=== PATIENT | female | born 1985 ===

== ENCOUNTER 2019-12-22 14:35 | Emergency (ER) | payer OTHER, SELFPAY ==
[2019-12-22 14:40] VITALS: BP 155/87; PULSE 107; RESP 20; TEMP 36.4; O2SAT 97
--- NOTE | 2019-12-22 14:53 | ED.GENADULT ---
HPI - General Adult General Chief complaint: Skin/Abscess/Foreign Body Stated complaint: Infection on left big toe Time Seen by Provider: 12/22/19 14:59 Source: patient and RN notes reviewed Mode of arrival: ambulatory Limitations: no limitations History of Present Illness HPI narrative: This is a 34 years old female presents to the office for an evaluation of possible infected toe. States, about three weeks ago, she saw a lock operator to remove her ingrowing toenail and then she went back for a 2 weeks follow-up and everything was fine until about 3 days ago. She noticed area thick drainage coming out from her affected toe every time she removed Band-Aid. She was told by lock operator to do Band-Aid, Epsom salts, and Neosporin topical. State, her lock operator office has been closed due to Covid19. Related Data Home Medications Medication Instructions Recorded Confirmed albuterol sulfate [ProAir HFA] INHALATION 12/22/19 amlodipine 12/22/19 aspirin [Aspir-Low] 12/22/19 cyclobenzaprine mg 12/22/19 dicyclomine mg 12/22/19 duloxetine mg PO 12/22/19 glipizide mg 12/22/19 lacosamide [Vimpat] 12/22/19 magnesium oxide 12/22/19 mometasone-formoterol [Dulera] INHALATION 12/22/19 omeprazole 12/22/19 paroxetine HCl mg PO 12/22/19 ropinirole mg 12/22/19 sumatriptan succinate mg PO 12/22/19 Allergies Allergy/AdvReac Type Severity Reaction Status Date / Time diazepam [From Valium] AdvReac Nausea and Verified 12/22/19 15:05 Vomiting tramadol AdvReac Nausea and Verified 12/22/19 15:05 Vomiting Review of Systems Review of Systems: Narrative: CONSTITUTIONAL: Denies fever, chills ENT: Denies congestion CARDIOVASCULAR: Denies chest pain, edema. RESPIRATORY: Denies cough GASTROINTESTINAL: Denies abdominal pain, vomiting, diarrhea. Reports feeling nausea today SKIN: Reports left great toe pain with swelling and redness and green drainage MUSCULOSKELETAL: Denies toes injury/trauma NEUROLOGIC: Denies numbness PMFSH Past Medical History Medical History (Updated 12/22/19 @ 15:18 by PETRONA Moran) Anxiety and depression Diabetes mellitus, type II Migraine Surgical History Surgical History (Updated 12/22/19 @ 15:18 by PETRONA Moran) H/O section Hx of cholecystectomy Hx of tonsillectomy Social History Social History (Updated 12/22/19 @ 15:19 by PETRONA Moran) Smoking status: Current every day smoker Comments At time of signature, I agree with nursing past medical, surgical, social and family history. There is no relevant family history pertinent to the presenting complaint. Exam Narrative: Exam Narrative: GENERAL: This is a well-nourished, well-developed patient, in no apparent distress. CARDIOVASCULAR: Regular rate and rhythm without murmurs, gallops, or rubs. RESPIRATORY: Clear to auscultation. Breath sounds equal bilaterally. No wheezes, rales, or rhonchi. GASTROINTESTINAL: obese, Abdomen soft, non-tender, nondistended. Bowel sounds are active. No guarding. NEURO: awake, alert, and oriented to person, place and time. There were no obvious focal neurologic abnormalities. Steady gait EXTREMITIES: left great toe noted edematous, erythema, tender to palpation lateral nailfold; fibular aspect of great toe. Cap refills brisk. Pedal pulse intact. No lymphandenititis. [place] Coma Scale Eye Opening: Spontaneous 4 [place] Coma Scale Motor: Obeys Commands 6 [place] Coma Scale Verbal: Oriented 5 Course Vital Signs Vital signs: Vital Signs Temperature 97.6 F 12/22/19 14:40 Pulse Rate 107 H 12/22/19 14:40 Respiratory Rate 12/22/19 14:40 Blood Pressure 155/87 H 12/22/19 14:40 Pulse Oximetry 97 12/22/19 14:40 Temperature 97.6 F 12/22/19 14:40 Pulse Rate 107 H 12/22/19 14:40 Respiratory Rate 12/22/19 14:40 Blood Pressure 155/87 H 12/22/19 14:40 Pulse Oximetry 97 12/22/19 14:40 Medical Decision Making MDM Narrative
== END 2019-12-22 15:12 | disposition home or self-care (01) ==
PROVIDERS: Emergency Provider Nurse Practitioner
DX: L03.032 Cellulitis of left toe (principal); F41.9 Anxiety disorder, unspecified; F32.9 Major depressive disorder, single episode, unspecified; E11.9 Type 2 diabetes mellitus without complications; F17.200 Nicotine dependence, unspecified, uncomplicated
CPT/HCPCS: 99213; G0463

== ENCOUNTER 2021-10-02 14:42 | Emergency (ER) | payer OTHER, SELFPAY ==
[2021-10-02 14:50] VITALS: BP 172/90; PULSE 101; RESP 20; TEMP 36.9; O2SAT 98
--- NOTE | 2021-10-02 15:04 | ED.URI ---
HPI - URI/Sore Throat General Chief Complaint: Upper Respiratory Infection Stated Complaint: cough,chest hurts,diarrhea,fever Time Seen by Provider: 10/02/21 15:04 Source: patient Mode of arrival: ambulatory Limitations: no limitations History of Present Illness HPI Narrative: Patient presents with a 2-week history of sinus congestion and drainage. Patient states she is recently started having right ear pain. Patient denies any drainage from her ear is using Flonase for her nasal congestion and reports cough but denies any shortness of breath no chest pain MD elicited complaint: fever, cough and nasal congestion Related Data Home Medications Medication Instructions Recorded Confirmed albuterol sulfate [ProAir HFA] 2 puff INHALATION Q4-6H PRN 12/22/19 10/02/21 amlodipine [Norvasc] 5 mg PO DAILY 12/22/19 10/02/21 dicyclomine 10 mg PO DAILY 12/22/19 10/02/21 duloxetine [Cymbalta] 60 mg PO DAILY 12/22/19 10/02/21 glipizide [Glucotrol] 10 mg PO DAILY 12/22/19 10/02/21 lacosamide [Vimpat] 150 mg PO DAILY 12/22/19 magnesium oxide 12/22/19 mometasone-formoterol [Dulera] INHALATION 12/22/19 omeprazole 40 mg PO DAILY 12/22/19 10/02/21 paroxetine HCl [Paxil] 30 mg PO DAILY 12/22/19 10/02/21 ropinirole 1 mg PO DAILY 12/22/19 10/02/21 sumatriptan succinate 50 mg PO DAILY PRN 12/22/19 10/02/21 aspirin [Aspirin Low Dose] 81 mg PO DAILY 10/02/21 10/02/21 Allergies Allergy/AdvReac Type Severity Reaction Status Date / Time diazepam [From Valium] AdvReac Mild Nausea and Verified 10/02/21 15:07 Vomiting tramadol AdvReac Mild Nausea and Verified 10/02/21 15:07 Vomiting Review of Systems Review of Systems: CONSTITUTIONAL: Denies chills, or sweats. Reports fever and generalized body aches EYES: Denies visual changes, redness, or discharge. ENT: Denies otalgia. Reports nasal congestion runny nose and sore throat CARDIOVASCULAR: Denies chest pain, palpitations, or edema. RESPIRATORY: Denies dyspnea. Reports occasional cough GASTROINTESTINAL: Denies abdominal pain, nausea, vomiting, or diarrhea. GENITOURINARY: Denies dysuria or hematuria. SKIN: Denies rash or itching. MUSCULOSKELETAL: Denies back pain, joint pain, or myalgia. Reports generalized body aches NEUROLOGIC: Denies headache, numbness, or weakness. PSYCHIATRIC: Denies anxiety or depression. [facility] Past Medical History Medical History (Updated 10/02/21 @ 15:13 by PETRONA Chandra) Anxiety and depression Diabetes mellitus, type II Migraine Surgical History Surgical History (Updated 12/22/19 @ 15:18 by PETRONA Moran) H/O section Hx of cholecystectomy Hx of tonsillectomy Social History Social History (Updated 12/22/19 @ 15:19 by PETRONA Moran) Smoking status: Current every day smoker Comments At time of signature, agree with nursing past medical, surgical, social and family history. There is no relevant family history pertinent to the presenting complaint Exam Narrative: The patient is a well-developed, well-nourished in no acute distress. SKIN: Skin is warm and dry without erythema, swelling or exudate. There is good turgor. No tenting. HEAD: Atraumatic. Normocephalic. No temporal or scalp tenderness. EYES: Moist and bright. Sclera and conjunctivae normal. No discharge. PERRLA. Extraocular motions intact. Gross visual acuity intact. EARS: Pinna is normal shape and contour. Clear external auditory canals. Left TM pearly degroot with good cone of light, no erythema or suppuration. Bilateral cerumen noted no gross hearing deficit. Right TM moderate erythremia bulging TM NOSE: pink, moist mucosa with good air movement. Clear rhinorrhea without nasal flaring. Septum midline. Mouth: moist mucous membranes. Mild maxillary sinus pressure THROAT; mild erythema noted to posterior oropharynx with moderate postnasal drainage. Without exudate or ulceration.. Uvula midline. Normal movement of soft palate. NECK: Supple and nontender with
== END 2021-10-02 15:18 | disposition home or self-care (01) ==
PROVIDERS: Emergency Provider Nurse Practitioner Family
DX: H66.91 Otitis media, unspecified, right ear (principal); J06.9 Acute upper respiratory infection, unspecified; J32.9 Chronic sinusitis, unspecified; E11.9 Type 2 diabetes mellitus without complications; F41.9 Anxiety disorder, unspecified; F32.A Depression, unspecified
CPT/HCPCS: 99213; G0463

== ENCOUNTER 2024-01-08 18:41 | Emergency (ER) | payer OTHER, SELFPAY ==
[2024-01-08 18:44] VITALS: BP 147/84; PULSE 117; RESP 20; TEMP 36.9; O2SAT 97
[2024-01-08 18:56] VITALS: BP 147/84; PULSE 117; RESP 20; TEMP 36.9; O2SAT 97
--- NOTE | 2024-01-08 19:11 | ED.EXTPRO ---
HPI - Extremity Problem General Chief complaint: Extremity Injury, Lower Stated complaint: left foot pain Time Seen by Provider: 01/08/24 19:02 Source: patient and RN notes reviewed Mode of arrival: ambulatory Limitations: no limitations History of Present Illness HPI Narrative: Patient presents today complaining of pain to the plantar aspect of her left foot x3 days, worsening since onset. Denies injury or trauma. States she noted a red line from the area of pain that has been extending since onset as well. Currently rates her pain 8/10 and has been taking Tylenol, using heat and ice without much relief. Patient has uncontrolled diabetes for which she does not currently take her prescribed medications and does not currently check her blood sugars. History of neuropathy. Related Data Allergies Allergy/AdvReac Type Severity Reaction Status Date / Time diazepam [From Valium] AdvReac Mild Nausea and Verified 10/02/21 15:07 Vomiting tramadol AdvReac Mild Nausea and Verified 10/02/21 15:07 Vomiting Review of Systems Review of Systems: CONSTITUTIONAL: Denies body aches, fever, chills, or sweats. EYES: Denies visual changes, redness, or discharge. ENT: Denies rhinorrhea, congestion, sore throat, or otalgia. CARDIOVASCULAR: Denies chest pain, palpitations, or edema. RESPIRATORY: Denies cough or dyspnea. GASTROINTESTINAL: Denies abdominal pain, nausea, vomiting, or diarrhea. GENITOURINARY: Denies dysuria or hematuria. SKIN: Denies rash, itching, or wounds. MUSCULOSKELETAL: + left foot pain NEUROLOGIC: Denies headache, numbness, tingling, or weakness. PSYCH: Denies depression or anxiety. [facility] Past Medical History Medical History Anxiety and depression Diabetes mellitus, type II Migraine Surgical History Surgical History H/O section Hx of cholecystectomy Hx of tonsillectomy Social History Social History Smoking status: Current every day smoker Comments At time of signature, I have reviewed and agree with nursing past medical, surgical, social and family history unless otherwise noted. Please see nursing chart for further information. There is no relevant family history pertinent to the presenting complaint Exam Narrative: GENERAL: Well-appearing, well-nourished, and in no acute distress. HEAD: Normocephalic, atraumatic. EYES: EOMI. No redness or drainage. Conjunctivae normal. ENT: Mucous membranes pink and moist. NECK: Normal AROM. . CHEST: No respiratory distress. EXTREMITIES: Left foot: Approximately 1.5 cm round callus type lesion to the plantar aspect of the lateral left foot that is mildly erythematous and tender to palpation. There is a red line extending medially along the arch of the foot and proximally up the medial aspect of the foot and ankle. Capillary refill normal. Pedal pulses normal. No break in the skin, drainage noted. SKIN: Warm, dry, no rash. Capillary refill normal. Normal skin turgor. NEURO: No focal deficits. Alert and oriented x3. Gait steady. PSYCH: Normal affect. No signs of depression or anxiety. Course Course Level of Care: Express Care Visit Vital Signs Vital signs: Vital Signs Temperature 98.4 F 01/08/24 18:44 Pulse Rate 117 H 01/08/24 18:44 Respiratory Rate 20 01/08/24 18:44 Blood Pressure 147/84 H 01/08/24 18:44 Pulse Oximetry 97 01/08/24 18:44 Oxygen Delivery Room Air 01/08/24 18:44 Temperature 98.4 F 01/08/24 18:56 Pulse Rate 117 H 01/08/24 18:56 Respiratory Rate 20 01/08/24 18:56 Blood Pressure 147/84 H 01/08/24 18:56 Pulse Oximetry 97 01/08/24 18:56 Oxygen Delivery Room Air 01/08/24 18:56 Reviewed MDM - Extremity (Nontraumatic) MDM Narrative Medical decision making narrative: Patient will be treated wi
== END 2024-01-08 19:24 | disposition home or self-care (01) ==
PROVIDERS: Emergency Provider Nurse Practitioner; PCP Hospitalist
DX: L03.116 Cellulitis of left lower limb (principal); F17.200 Nicotine dependence, unspecified, uncomplicated; E11.9 Type 2 diabetes mellitus without complications
CPT/HCPCS: 99212; G0463